=== PATIENT | male | born 1980 | race Caucasian/White ===

== ENCOUNTER → 2021-03-02 12:23 | Outpatient (CLI) | payer OTHER, SELFPAY ==
[2021-03-02 13:42] LABS: COVID19 -Nasal RAPID Negative (Negative)
== END ==
PROVIDERS: Visit Provider Student in an Organized Health Care Education/Training Program
DX: Z20.822 Contact with and (suspected) exposure to COVID-19 (principal)
CPT/HCPCS: 87635